=== PATIENT | male | born 1965 | race Caucasian/White ===

== ENCOUNTER 2017-06-19 10:46 | Emergency (ER) | payer OTHER | END 2017-06-19 12:53 | disposition home or self-care (01) | LOC: FTE 10:46 | DX: J02.9 Acute pharyngitis, unspecified (principal); M54.2 Cervicalgia | CPT/HCPCS: 72040; 99283-25 ==

== ENCOUNTER 2018-04-07 07:35 | Emergency (ER) | payer OTHER ==
[2018-04-07] MEDS: ONDANSETRON (ODT) 4 MG TAB ODT (08:13)
[2018-04-07] MEDS: HYDROCODONE/APAP (5/325) TAB PO (08:13)
== END 2018-04-07 09:48 | disposition home or self-care (01) ==
LOC: FTE 07:35
DX: M54.2 Cervicalgia (principal)
CPT/HCPCS: 72040; 99283-25